=== PATIENT | male | born 1955 | race Caucasian/White ===

== ENCOUNTER 2023-08-09 09:53 | Inpatient (IN) ==
[2023-08-09] MEDS: VANCOMYCIN 1,500 MG in 0.9 % SODIUM CHLORIDE 500 ML IV ONE (10:35)
[2023-08-09] MEDS: fentaNYL 100 MCG/2 ML VIAL IV ONE (10:36)
[2023-08-09 10:44] LABS: Basophils # (Auto) 0.02 K/mcL (0.00-0.30); Basophils % (Auto) 0.3 % (0.0-2.0); Eosinophils # (Auto) 0.34 K/mcL (0.00-0.70); Eosinophils % (Auto) 4.7 % (0.0-7.0); Hematocrit 24.7 % (40.1-51.0); Hemoglobin 7.4 g/dL (13.7-17.5); Lymphocytes # (Auto) 0.63 K/mcL (1.50-4.80); Lymphocytes % (Auto) 8.8 % (15.5-49.0); Mean Cell Volume 73.5 fL (80.0-100.0); Mean Platelet Volume 8.8 fL (8.8-12.5); Monocytes # (Auto) 0.48 K/mcL (0.10-0.90); Monocytes % (Auto) 6.7 % (1.0-12.0); Neutrophils % (Auto) 79.4 % (38.0-78.0); Platelet Count 168 K/mcL (140-440); RBC 3.36 M/mcL (4.63-6.08); Red Cell Distribution Width 17.6 % (11.5-14.5); WBC 7.2 K/mcL (4.5-11.0)
[2023-08-09 11:04] LABS: ALT/SGPT 13 U/L (<40); AST/SGOT 36 U/L (<40); Albumin 2.8 gm/dL (3.2-5.2); Albumin/Globulin Ratio 0.7 (1.0-2.3); Alkaline Phosphatase 208 U/L (39-117); Bilirubin,Total 0.4 mg/dL (0.1-1.0); Blood Urea Nitrogen 40 mg/dL (8-23); Calcium 8.3 mg/dL (8.6-10.4); Carbon Dioxide 21 mmol/L (22-30); Chloride 101 mmol/L (96-108); Glomerular Filtration Rate 33; Glucose 229 mg/dL (70-105)
[2023-08-09 11:39] LABS: Alcohol, Blood < 10.1 mg/dL; Alcohol,Blood < 0.010 gm/dL (<0.010)
[2023-08-09] MEDS: 0.9 % SODIUM CHLORIDE 1,000 ML IV SCH ×2 (12:36→16:00)
[2023-08-09] MEDS ORDERED: DEXTROSE 31 GM ORAL.SUSP PO PRN (13:15)
[2023-08-09] MEDS ORDERED: ONDANSETRON 4 MG/2 ML VIAL IV PRN (13:15)
[2023-08-09] MEDS ORDERED: VANCOMYCIN PER PHARMACY IV SCH (13:15)
[2023-08-09] MEDS ORDERED: IPRATROPIUM/ALBUTEROL 3 ML AMPUL.NEB NEB PRN (13:15)
[2023-08-09] MEDS ORDERED: DEXTROSE 50% 50 ML VIAL IV PRN (13:15)
[2023-08-09] MEDS: ACETAMINOPHEN 325 MG TABLET PO PRN (13:30)
[2023-08-09] MEDS: PIPERACILLIN SODIUM/TAZOBACTAM 3.375 GM in DEXTROSE 5% IN WATER 50 ML IV SCH (13:48)
[2023-08-09] MEDS: oxyCODONE IR 5 MG TABLET PO PRN (13:56)
[2023-08-09] MEDS: 0.9 % SODIUM CHLORIDE 10 ML SYRINGE IV SCH (14:00)
[2023-08-09] MEDS ORDERED: IOPAMIDOL 100 ML BOTTLE IV ONE (15:11)
[2023-08-09] MEDS: PIPERACILLIN SODIUM/TAZOBACTAM 3.375 GM in DEXTROSE 5% IN WATER 50 ML IV ONE (15:18)
[2023-08-09] MEDS: HYDROmorphone 0.5 MG/0.5 ML SYRINGE IV PRN (15:25)
[2023-08-09 17:04] LABS: Amphetamine Screen,Urine Suspect positive; Barbiturate Screen,Urine None detected; Benzodiazepines Screen,Urine None detected; Cannabinoid Screen,Urine None detected; Cocaine Screen,Urine None detected; Opiate Screen,Urine None detected; Oxycodone, Urine Screen None detected; Phencyclidine Screen,Urine None detected
[2023-08-09] MEDS: INSULIN LISPRO 1 UNIT/0.01 ML UNIT SQ SCH (17:04)
[2023-08-09] MEDS: PIPERACILLIN SODIUM/TAZOBACTAM 3.375 GM in DEXTROSE 5% IN WATER 100 ML IV SCH (19:40)
[2023-08-09] MEDS: SENNOSIDES 1 TABLET PO SCH (21:41)
[2023-08-09] MEDS: DOCUSATE SODIUM 100 MG CAPSULE PO SCH (21:42)
[2023-08-09] MEDS: buPROPion 150 MG TAB.SR.12H PO SCH (21:42)
[2023-08-09] MEDS: APIXABAN 2.5 MG TABLET PO SCH (21:42)
[2023-08-10 07:06] LABS: Basophils # (Auto) 0.02 K/mcL (0.00-0.30); Basophils % (Auto) 0.3 % (0.0-2.0); Eosinophils # (Auto) 0.43 K/mcL (0.00-0.70); Eosinophils % (Auto) 6.7 % (0.0-7.0); Hematocrit 24.6 % (40.1-51.0); Hemoglobin 7.2 g/dL (13.7-17.5); Lymphocytes # (Auto) 0.58 K/mcL (1.50-4.80); Mean Cell Volume 76.6 fL (80.0-100.0); Mean Corpuscular HGB Conc 29.3 g/dL (31.0-36.0); Mean Platelet Volume 9.3 fL (8.8-12.5); Monocytes # (Auto) 0.32 K/mcL (0.10-0.90); Neutrophils % (Auto) 78.7 % (38.0-78.0); Platelet Count 197 K/mcL (140-440); RBC 3.21 M/mcL (4.63-6.08); Red Cell Distribution Width 17.6 % (11.5-14.5); WBC 6.5 K/mcL (4.5-11.0)
[2023-08-10 07:34] LABS: ALT/SGPT 11 U/L (<40); AST/SGOT 34 U/L (<40); Albumin 2.8 gm/dL (3.2-5.2); Albumin/Globulin Ratio 0.7 (1.0-2.3); Alkaline Phosphatase 217 U/L (39-117); Bilirubin,Total 0.4 mg/dL (0.1-1.0); Blood Urea Nitrogen 33 mg/dL (8-23); Calcium 8.4 mg/dL (8.6-10.4); Carbon Dioxide 22 mmol/L (22-30); Chloride 105 mmol/L (96-108); Globulin 4.3 gm/dL (2.2-3.7); Glomerular Filtration Rate 44; Glucose 122 mg/dL (70-105)
[2023-08-10] MEDS: ATORVASTATIN 10 MG TABLET PO SCH (08:10)
[2023-08-10] MEDS: amLODIPine 5 MG TABLET PO SCH (08:11)
[2023-08-10] MEDS: INSULIN GLARGINE, HUMAN 1 UNIT/0.01 ML SQ SCH (08:16)
[2023-08-10] MEDS: VANCOMYCIN 1,250 MG in 0.9 % SODIUM CHLORIDE 500 ML IV SCH (09:34)
[2023-08-10 10:07] LABS: Estimated Average Glucose(eAG) 177 mg/dL; Hemoglobin A1C 7.8 % Hgb (4.0-6.0)
[2023-08-10] MEDS ORDERED: OZEMPIC 2 MG SUB-Q SCH (10:15)
[2023-08-10] MEDS: Empagliflozin [Jardiance] 25 mg tablet PO SCH (10:40)
[2023-08-10] MEDS: INJECTOR SUB-Q SCH (10:42)
[2023-08-10] MEDS: SEMAGLUTIDE SUB-Q SCH (10:42)
[2023-08-10] MEDS: traZODone HCL 50 MG TABLET PO PRN (21:01)
[2023-08-11 06:52] LABS: Basophils # (Auto) 0.02 K/mcL (0.00-0.30); Basophils % (Auto) 0.4 % (0.0-2.0); Eosinophils # (Auto) 0.33 K/mcL (0.00-0.70); Eosinophils % (Auto) 6.4 % (0.0-7.0); Hematocrit 24.7 % (40.1-51.0); Hemoglobin 7.3 g/dL (13.7-17.5); Lymphocytes # (Auto) 0.57 K/mcL (1.50-4.80); Mean Cell Volume 75.1 fL (80.0-100.0); Mean Corpuscular HGB Conc 29.6 g/dL (31.0-36.0); Mean Platelet Volume 9.1 fL (8.8-12.5); Monocytes # (Auto) 0.32 K/mcL (0.10-0.90); Monocytes % (Auto) 6.2 % (1.0-12.0); Neutrophils % (Auto) 75.8 % (38.0-78.0); Platelet Count 214 K/mcL (140-440); RBC 3.29 M/mcL (4.63-6.08); Red Cell Distribution Width 17.5 % (11.5-14.5); WBC 5.2 K/mcL (4.5-11.0)
[2023-08-11 07:27] LABS: ALT/SGPT 13 U/L (<40); AST/SGOT 27 U/L (<40); Albumin 2.8 gm/dL (3.2-5.2); Albumin/Globulin Ratio 0.7 (1.0-2.3); Alkaline Phosphatase 216 U/L (39-117); Bilirubin,Total 0.4 mg/dL (0.1-1.0); Blood Urea Nitrogen 28 mg/dL (8-23); Calcium 8.9 mg/dL (8.6-10.4); Carbon Dioxide 20 mmol/L (22-30); Chloride 106 mmol/L (96-108); Glomerular Filtration Rate 51; Glucose 77 mg/dL (70-105)
[2023-08-12 07:34] LABS: Basophils # (Auto) 0.02 K/mcL (0.00-0.30); Basophils % (Auto) 0.5 % (0.0-2.0); Eosinophils # (Auto) 0.37 K/mcL (0.00-0.70); Eosinophils % (Auto) 8.8 % (0.0-7.0); Hematocrit 23.8 % (40.1-51.0); Lymphocytes % (Auto) 14.3 % (15.5-49.0); Mean Cell Volume 75.8 fL (80.0-100.0); Mean Corpuscular HGB Conc 29.4 g/dL (31.0-36.0); Mean Platelet Volume 9.1 fL (8.8-12.5); Monocytes # (Auto) 0.37 K/mcL (0.10-0.90); Monocytes % (Auto) 8.8 % (1.0-12.0); Neutrophils % (Auto) 67.4 % (38.0-78.0); Platelet Count 248 K/mcL (140-440); RBC 3.14 M/mcL (4.63-6.08); Red Cell Distribution Width 17.6 % (11.5-14.5); WBC 4.2 K/mcL (4.5-11.0)
[2023-08-12 08:06] LABS: ALT/SGPT 12 U/L (<40); AST/SGOT 27 U/L (<40); Albumin 2.9 gm/dL (3.2-5.2); Albumin/Globulin Ratio 0.7 (1.0-2.3); Alkaline Phosphatase 210 U/L (39-117); Bilirubin,Total 0.3 mg/dL (0.1-1.0); Blood Urea Nitrogen 25 mg/dL (8-23); Calcium 8.5 mg/dL (8.6-10.4); Carbon Dioxide 20 mmol/L (22-30); Chloride 108 mmol/L (96-108); Globulin 3.9 gm/dL (2.2-3.7); Glomerular Filtration Rate 56; Glucose 59 mg/dL (70-105)
[2023-08-12 08:16] LABS: Hematocrit 25.4 % (40.1-51.0); Hemoglobin 7.3 g/dL (13.7-17.5)
[2023-08-12] MEDS: metroNIDAZOLE 500 MG TABLET PO SCH (15:11)
[2023-08-12] MEDS ORDERED: 0.9 % SODIUM CHLORIDE 10 ML SYRINGE IV PRN (15:21)
[2023-08-12] MEDS: DAPTOmycin 500 MG VIAL IV SCH (16:31)
[2023-08-12] MEDS: 0.9 % SODIUM CHLORIDE 10 ML SYRINGE IV SCH (21:21)
[2023-08-13 07:09] LABS: Basophils # (Auto) 0.03 K/mcL (0.00-0.30); Basophils % (Auto) 0.6 % (0.0-2.0); Eosinophils # (Auto) 0.32 K/mcL (0.00-0.70); Eosinophils % (Auto) 6.5 % (0.0-7.0); Hematocrit 23.7 % (40.1-51.0); Lymphocytes # (Auto) 0.64 K/mcL (1.50-4.80); Lymphocytes % (Auto) 13.1 % (15.5-49.0); Mean Corpuscular HGB Conc 29.5 g/dL (31.0-36.0); Mean Platelet Volume 8.2 fL (8.8-12.5); Monocytes # (Auto) 0.35 K/mcL (0.10-0.90); Monocytes % (Auto) 7.2 % (1.0-12.0); Neutrophils % (Auto) 72.2 % (38.0-78.0); Platelet Count 236 K/mcL (140-440); RBC 3.16 M/mcL (4.63-6.08); Red Cell Distribution Width 17.5 % (11.5-14.5); WBC 4.9 K/mcL (4.5-11.0)
[2023-08-13 07:32] LABS: ALT/SGPT 15 U/L (<40); AST/SGOT 27 U/L (<40); Albumin 2.6 gm/dL (3.2-5.2); Albumin/Globulin Ratio 0.7 (1.0-2.3); Alkaline Phosphatase 199 U/L (39-117); Bilirubin,Total 0.3 mg/dL (0.1-1.0); Blood Urea Nitrogen 25 mg/dL (8-23); Calcium 8.6 mg/dL (8.6-10.4); Carbon Dioxide 21 mmol/L (22-30); Chloride 108 mmol/L (96-108); Globulin 3.9 gm/dL (2.2-3.7); Glomerular Filtration Rate 56; Glucose 79 mg/dL (70-105)
[2023-08-13] MEDS: INSULIN GLARGINE, HUMAN 1 UNIT/0.01 ML SQ SCH (11:19)
[2023-08-13 12:02] LABS: Hematocrit 24.6 % (40.1-51.0); Hemoglobin 7.3 g/dL (13.7-17.5)
[2023-08-13] MEDS ORDERED: APIXABAN 5 MG TABLET PO SCH (21:00)
[2023-08-14] MEDS ORDERED: INSULIN GLARGINE, HUMAN 1 UNIT/0.01 ML SQ SCH (09:00)
[2023-08-16] MEDS ORDERED: SEMAGLUTIDE SUB-Q SCH (09:00)
[2023-08-16] MEDS ORDERED: [UNRECOGNIZED DRUG - OTHER] SUB-Q SCH (09:00)
[2023-08-18 06:03] LABS: Amphetamine Screen Positive
== END 2023-08-13 16:45 | disposition home or self-care (01) | DRG 638 ==
LOC: ED 09:53 → MEDSUR 13:05
PROVIDERS: ADMIT Internal Medicine; ATTEND Student in an Organized Health Care Education/Training Program

== ENCOUNTER 2024-07-03 12:50 | Inpatient (IN) ==
[2024-07-03] MEDS ORDERED: IOPAMIDOL 100 ML BOTTLE IV ONE (12:51)
[2024-07-03 13:45] LABS: Basophils # (Auto) 0.03 K/mcL (0.00-0.30); Basophils % (Auto) 0.4 % (0.0-2.0); Eosinophils # (Auto) 0.13 K/mcL (0.00-0.70); Eosinophils % (Auto) 1.9 % (0.0-7.0); Hematocrit 17.6 % (40.1-51.0); Hemoglobin 4.7 g/dL (13.7-17.5); Lymphocytes # (Auto) 1.08 K/mcL (1.50-4.80); Lymphocytes % (Auto) 15.8 % (15.5-49.0); Mean Cell Volume 67.4 fL (80.0-100.0); Mean Corpuscular HGB Conc 26.7 g/dL (31.0-36.0); Mean Platelet Volume 8.8 fL (8.8-12.5); Monocytes # (Auto) 0.61 K/mcL (0.10-0.90); Monocytes % (Auto) 8.9 % (1.0-12.0); Neutrophils % (Auto) 72.9 % (38.0-78.0); Platelet Count 194 K/mcL (140-440); RBC 2.61 M/mcL (4.63-6.08); Red Cell Distribution Width 19.8 % (11.5-14.5); WBC 6.8 K/mcL (4.5-11.0)
[2024-07-03] MEDS: FUROSEMIDE 40 MG/4 ML VIAL IV ONE (13:51)
[2024-07-03 13:52] LABS: ALT/SGPT 15 U/L (<40); AST/SGOT 20 U/L (<40); Albumin 2.9 gm/dL (3.2-5.2); Albumin/Globulin Ratio 0.7 (1.0-2.3); Alkaline Phosphatase 143 U/L (39-117); Bilirubin,Total 0.4 mg/dL (0.1-1.0); Blood Urea Nitrogen 39 mg/dL (8-23); Calcium 8.5 mg/dL (8.6-10.4); Carbon Dioxide 19 mmol/L (22-30); Chloride 108 mmol/L (96-108); Globulin 4.1 gm/dL (2.2-3.7); Glomerular Filtration Rate 40; Glucose 236 mg/dL (70-105); Potassium 4.4 mmol/L (3.3-5.1); Sodium 138 mmol/L (133-145)
[2024-07-03] MEDS: IPRATROPIUM/ALBUTEROL 3 ML AMPUL.NEB NEB ONE ×2 (13:57→21:40)
[2024-07-03] MEDS: 0.9 % SODIUM CHLORIDE 250 ML IV SCH ×2 (14:14→22:06)
[2024-07-03 15:23] LABS: Prothrombin Time 23.7 sec (11.9-14.5)
[2024-07-03 16:53] LABS: Appearance,Urine CLEAR (Clear); Bilirubin,Urine Negative (Negative); Color,Urine YELLOW; Glucose,Urine (UA) >=500 mg/dL (Negative); Ketones,Urine Negative (Negative); Leukocyte Esterase,Urine Negative /uL (Negative); Nitrate,Urine Negative (Negative); Protein,Urine Negative (Negative); Specific Gravity,Urine 1.016 (1.000-1.035); Urine Blood Negative (Negative); Urine RBC 1 /hpf (0-3); Urine Squamous Epithelial Cell 0 /hpf (0-4); Urine WBC 1 /hpf (0-4); Urobilinogen,Urine Negative
[2024-07-03 17:29] LABS: Amphetamine Screen,Urine Suspect positive; Barbiturate Screen,Urine None detected; Benzodiazepines Screen,Urine Suspect positive; Cannabinoid Screen,Urine None detected; Cocaine Screen,Urine None detected; Fentanyl, Urine Screen None Detected; Opiate Screen,Urine None detected; Oxycodone, Urine Screen None detected; Phencyclidine Screen,Urine None detected
[2024-07-03 17:38] LABS: Ferritin 21.7 ng/mL (30.0-400.0)
[2024-07-03] MEDS: cefTRIAXone 1 GM VIAL IV ONE (19:18)
[2024-07-03] MEDS: AZITHROMYCIN 500 MG in 0.9 % SODIUM CHLORIDE 250 ML IV ONE (19:22)
[2024-07-03] MEDS ORDERED: ONDANSETRON 4 MG/2 ML VIAL IV PRN ×2 (20:55→22:07)
[2024-07-03] MEDS: HYDROmorphone 0.5 MG/0.5 ML SYRINGE IV ONE (21:11)
[2024-07-03 21:37] LABS: Retic Absolute 0.05 M/mcL (0.03-0.11)
[2024-07-03 21:59] LABS: Haptoglobin 204 mg/dL (30-200)
[2024-07-03] MEDS ORDERED: DEXTROSE 31 GM ORAL.SUSP PO PRN (22:07)
[2024-07-03] MEDS ORDERED: traZODone HCL 50 MG TABLET PO PRN (22:07)
[2024-07-03] MEDS ORDERED: DEXTROSE 50% 50 ML VIAL IV PRN (22:07)
[2024-07-03] MEDS ORDERED: oxyCODONE IR 5 MG TABLET PO PRN (22:07)
[2024-07-03] MEDS: cefTRIAXone 1 GM VIAL ONE (22:21)
[2024-07-03] MEDS: INSULIN LISPRO 1 UNIT/0.01 ML UNIT SQ SCH (22:21)
[2024-07-03] MEDS: cefTRIAXone 1 GM VIAL IV SCH (22:25)
[2024-07-03] MEDS: AZITHROMYCIN 500 MG in DEXTROSE 5% IN WATER 250 ML IV SCH (22:25)
[2024-07-03] MEDS: 0.9 % SODIUM CHLORIDE 10 ML SYRINGE IV SCH ×2 (22:27→22:29)
[2024-07-03] MEDS: DOCUSATE SODIUM 100 MG CAPSULE PO SCH ×2 (22:29)
[2024-07-03] MEDS: SENNOSIDES 1 TABLET PO SCH ×2 (22:29)
[2024-07-04 00:46] LABS: Carcinoembryonic Antigen 6.7 ng/mL (<3.4)
[2024-07-04] MEDS: NICOTINE 21 MG PATCH TOPICAL SCH (01:53)
[2024-07-04] MEDS: NICOTINE 21 MG PATCH ONE (01:53)
[2024-07-04 06:46] LABS: ALT/SGPT 15 U/L (<40); AST/SGOT 23 U/L (<40); Albumin 2.8 gm/dL (3.2-5.2); Albumin/Globulin Ratio 0.7 (1.0-2.3); Alkaline Phosphatase 184 U/L (39-117); Bilirubin,Total 0.5 mg/dL (0.1-1.0); Blood Urea Nitrogen 37 mg/dL (8-23); Calcium 8.3 mg/dL (8.6-10.4); Carbon Dioxide 21 mmol/L (22-30); Chloride 111 mmol/L (96-108); Globulin 4.1 gm/dL (2.2-3.7); Glomerular Filtration Rate 38; Glucose 80 mg/dL (70-105); Potassium 4.2 mmol/L (3.3-5.1); Sodium 141 mmol/L (133-145)
[2024-07-04 06:58] LABS: Basophils # (Auto) 0.04 K/mcL (0.00-0.30); Basophils % (Auto) 0.5 % (0.0-2.0); Eosinophils # (Auto) 0.26 K/mcL (0.00-0.70); Eosinophils % (Auto) 3.1 % (0.0-7.0); Hematocrit 22.3 % (40.1-51.0); Hemoglobin 6.5 g/dL (13.7-17.5); Lymphocytes # (Auto) 0.82 K/mcL (1.50-4.80); Lymphocytes % (Auto) 9.7 % (15.5-49.0); Mean Cell Volume 72.2 fL (80.0-100.0); Mean Corpuscular HGB Conc 29.1 g/dL (31.0-36.0); Mean Platelet Volume 8.8 fL (8.8-12.5); Monocytes # (Auto) 0.71 K/mcL (0.10-0.90); Monocytes % (Auto) 8.4 % (1.0-12.0); Neutrophils % (Auto) 78.1 % (38.0-78.0); Platelet Count 217 K/mcL (140-440); RBC 3.09 M/mcL (4.63-6.08); Red Cell Distribution Width 21.8 % (11.5-14.5); WBC 8.5 K/mcL (4.5-11.0)
[2024-07-04] MEDS: PANTOPRAZOLE 40 MG PACKET PO SCH (08:00)
[2024-07-04] MEDS: FUROSEMIDE 40 MG/4 ML VIAL IV SCH (08:01)
[2024-07-04] MEDS: SIMVASTATIN 20 MG TABLET PO SCH (09:37)
[2024-07-04] MEDS: glipiZIDE 5 MG TABLET PO SCH (09:37)
[2024-07-04] MEDS: buPROPion 150 MG TAB.SR.12H PO SCH (09:37)
[2024-07-04] MEDS: INSULIN GLARGINE, HUMAN 1 UNIT/0.01 ML SQ SCH (09:38)
[2024-07-04] MEDS: cefTRIAXone 1 GM VIAL IV SCH (09:38)
[2024-07-04] MEDS: LISINOPRIL 5 MG TABLET PO SCH (09:38)
[2024-07-04] MEDS: Empagliflozin [Jardiance] 25 mg tablet PO SCH (09:38)
[2024-07-04] MEDS: AZITHROMYCIN 500 MG in DEXTROSE 5% IN WATER 250 ML IV SCH (09:39)
[2024-07-04] MEDS: 0.9 % SODIUM CHLORIDE 250 ML IV SCH (11:25)
[2024-07-04 12:26] LABS: Estimated Average Glucose(eAG) 140 mg/dL; Hemoglobin A1C 6.5 % Hgb (4.0-6.0)
[2024-07-04] MEDS: IPRATROPIUM/ALBUTEROL 3 ML AMPUL.NEB NEB PRN (16:10)
[2024-07-04] MEDS: ACETAMINOPHEN 325 MG TABLET PO PRN (16:22)
[2024-07-04] MEDS: HYDROcodone/APAP 10/325MG TABLET PO PRN (21:58)
[2024-07-04] MEDS: METOPROLOL TARTRATE 25 MG TABLET PO SCH (21:59)
[2024-07-05 06:49] LABS: ALT/SGPT 19 U/L (<40); AST/SGOT 31 U/L (<40); Albumin 3.1 gm/dL (3.2-5.2); Albumin/Globulin Ratio 0.7 (1.0-2.3); Alkaline Phosphatase 208 U/L (39-117); Bilirubin,Total 0.5 mg/dL (0.1-1.0); Blood Urea Nitrogen 36 mg/dL (8-23); Calcium 8.5 mg/dL (8.6-10.4); Carbon Dioxide 22 mmol/L (22-30); Chloride 108 mmol/L (96-108); Globulin 4.5 gm/dL (2.2-3.7); Glomerular Filtration Rate 40; Glucose 86 mg/dL (70-105); Sodium 142 mmol/L (133-145)
[2024-07-05 06:50] LABS: Basophils # (Auto) 0.03 K/mcL (0.00-0.30); Basophils % (Auto) 0.3 % (0.0-2.0); Eosinophils # (Auto) 0.43 K/mcL (0.00-0.70); Eosinophils % (Auto) 4.7 % (0.0-7.0); Hematocrit 30.4 % (40.1-51.0); Hemoglobin 9.1 g/dL (13.7-17.5); Lymphocytes # (Auto) 1.06 K/mcL (1.50-4.80); Lymphocytes % (Auto) 11.6 % (15.5-49.0); Mean Cell Volume 72.4 fL (80.0-100.0); Mean Corpuscular HGB Conc 29.9 g/dL (31.0-36.0); Mean Platelet Volume 8.9 fL (8.8-12.5); Monocytes # (Auto) 0.42 K/mcL (0.10-0.90); Monocytes % (Auto) 4.6 % (1.0-12.0); Neutrophils % (Auto) 78.6 % (38.0-78.0); Platelet Count 250 K/mcL (140-440); Red Cell Distribution Width 21.8 % (11.5-14.5); WBC 9.1 K/mcL (4.5-11.0)
[2024-07-05] MEDS: AZITHROMYCIN 250 MG TABLET PO SCH (08:48)
[2024-07-05] MEDS ORDERED: INSULIN GLARGINE, HUMAN 1 UNIT/0.01 ML SQ SCH (09:00)
[2024-07-05] MEDS: guaiFENesin/DEXTROMETHORPHAN 5ML UD CUP PO PRN (14:26)
[2024-07-06 06:39] LABS: Basophils # (Auto) 0.04 K/mcL (0.00-0.30); Basophils % (Auto) 0.6 % (0.0-2.0); Eosinophils # (Auto) 0.41 K/mcL (0.00-0.70); Hematocrit 30.3 % (40.1-51.0); Hemoglobin 8.9 g/dL (13.7-17.5); Lymphocytes # (Auto) 0.98 K/mcL (1.50-4.80); Lymphocytes % (Auto) 14.4 % (15.5-49.0); Mean Cell Volume 72.3 fL (80.0-100.0); Mean Corpuscular HGB Conc 29.4 g/dL (31.0-36.0); Mean Platelet Volume 8.9 fL (8.8-12.5); Monocytes # (Auto) 0.46 K/mcL (0.10-0.90); Monocytes % (Auto) 6.7 % (1.0-12.0); Neutrophils % (Auto) 72.2 % (38.0-78.0); Platelet Count 222 K/mcL (140-440); RBC 4.19 M/mcL (4.63-6.08); Red Cell Distribution Width 22.3 % (11.5-14.5); WBC 6.8 K/mcL (4.5-11.0)
[2024-07-06 06:53] LABS: ALT/SGPT 19 U/L (<40); AST/SGOT 25 U/L (<40); Albumin 2.9 gm/dL (3.2-5.2); Albumin/Globulin Ratio 0.7 (1.0-2.3); Alkaline Phosphatase 152 U/L (39-117); Bilirubin,Total 0.5 mg/dL (0.1-1.0); Blood Urea Nitrogen 34 mg/dL (8-23); Calcium 8.4 mg/dL (8.6-10.4); Carbon Dioxide 22 mmol/L (22-30); Chloride 107 mmol/L (96-108); Globulin 4.2 gm/dL (2.2-3.7); Glomerular Filtration Rate 38; Glucose 112 mg/dL (70-105); Potassium 3.9 mmol/L (3.3-5.1); Sodium 141 mmol/L (133-145)
[2024-07-06] MEDS: SPIRONOLACTONE 25 MG TABLET PO SCH (08:13)
[2024-07-08 16:09] LABS: Amphetamine Screen Negative ({null, Cutoff=500})
[2024-07-09 17:09] LABS: Alprazolam, Urine Negative ({null, Cutoff=100}); Clonazepam, Urine Negative ({null, Cutoff=100}); Flurazepam, Urine Negative ({null, Cutoff=100}); Lorazepam, Urine Negative ({null, Cutoff=100}); Midazolam, Urine Negative ({null, Cutoff=100}); Nordiazepam, Urine Negative ({null, Cutoff=100}); Oxazepam, Urine Negative ({null, Cutoff=100}); Temazepam, Urine Negative ({null, Cutoff=100}); Triazolam, Urine Negative ({null, Cutoff=100})
== END 2024-07-06 13:09 | disposition home health service (06) | DRG 811 ==
LOC: ED 12:50 → MEDSUR 22:07
PROVIDERS: ADMIT Internal Medicine; ATTEND Internal Medicine

== ENCOUNTER 2024-07-16 09:22 | Inpatient (IN) ==
[2024-07-16] MEDS: FUROSEMIDE 40 MG/4 ML VIAL IV ONE (11:37)
[2024-07-16 12:22] LABS: Basophils # (Auto) 0.03 K/mcL (0.00-0.30); Basophils % (Auto) 0.3 % (0.0-2.0); Eosinophils # (Auto) 0.01 K/mcL (0.00-0.70); Eosinophils % (Auto) 0.1 % (0.0-7.0); Hematocrit 29.2 % (40.1-51.0); Hemoglobin 8.6 g/dL (13.7-17.5); Lymphocytes # (Auto) 0.79 K/mcL (1.50-4.80); Lymphocytes % (Auto) 6.6 % (15.5-49.0); Mean Cell Volume 71.2 fL (80.0-100.0); Mean Corpuscular HGB Conc 29.5 g/dL (31.0-36.0); Mean Platelet Volume 9.2 fL (8.8-12.5); Monocytes # (Auto) 0.73 K/mcL (0.10-0.90); Monocytes % (Auto) 6.1 % (1.0-12.0); Neutrophils % (Auto) 86.6 % (38.0-78.0); Platelet Count 162 K/mcL (140-440); Red Cell Distribution Width 23.8 % (11.5-14.5)
[2024-07-16 12:24] LABS: ALT/SGPT 14 U/L (<40); AST/SGOT 24 U/L (<40); Albumin 2.9 gm/dL (3.2-5.2); Albumin/Globulin Ratio 0.7 (1.0-2.3); Alkaline Phosphatase 116 U/L (39-117); Bilirubin,Total 0.9 mg/dL (0.1-1.0); Blood Urea Nitrogen 44 mg/dL (8-23); Calcium 9.4 mg/dL (8.6-10.4); Carbon Dioxide 25 mmol/L (22-30); Chloride 101 mmol/L (96-108); Globulin 4.1 gm/dL (2.2-3.7); Glomerular Filtration Rate 40; Glucose 139 mg/dL (70-105); Potassium 4.7 mmol/L (3.3-5.1); Sodium 134 mmol/L (133-145)
[2024-07-16 13:41] LABS: Appearance,Urine CLEAR (Clear); Bilirubin,Urine Negative (Negative); Color,Urine YELLOW; Glucose,Urine (UA) >=500 mg/dL (Negative); Ketones,Urine Negative (Negative); Leukocyte Esterase,Urine 75 /uL (Negative); Nitrate,Urine Negative (Negative); Protein,Urine 30 mg/dL (Negative); Specific Gravity,Urine 1.021 (1.000-1.035); Urine Blood Negative (Negative); Urine Hyaline Cast 6 /lph (0-2); Urine RBC 0 /hpf (0-3); Urine Squamous Epithelial Cell 0 /hpf (0-4); Urine WBC 5 /hpf (0-4); Urobilinogen,Urine Negative
[2024-07-16 13:42] LABS: Amphetamine Screen,Urine Suspect positive; Barbiturate Screen,Urine None detected; Benzodiazepines Screen,Urine None detected; Cannabinoid Screen,Urine None detected; Cocaine Screen,Urine None detected; Fentanyl, Urine Screen None Detected; Opiate Screen,Urine None detected; Oxycodone, Urine Screen None detected; Phencyclidine Screen,Urine None detected
[2024-07-16] MEDS: cefTRIAXone 2 GM in DEXTROSE 5% IN WATER 50 ML IV ONE (14:14)
[2024-07-16] MEDS: ACETAMINOPHEN 1,000 MG/100 ML BAG IV ONE (15:14)
[2024-07-16] MEDS ORDERED: POLYETHYLENE GLYCOL 3350 17 GM PACKET PO PRN (16:25)
[2024-07-16] MEDS ORDERED: DEXTROSE 50% 50 ML VIAL IV PRN (16:25)
[2024-07-16] MEDS ORDERED: ONDANSETRON 4 MG/2 ML VIAL IV PRN (16:25)
[2024-07-16] MEDS ORDERED: POTASSIUM CHLORIDE 40 MEQ in DEXTROSE 5% IN WATER 500 ML IV PRN (16:25)
[2024-07-16] MEDS ORDERED: SENNOSIDES 1 TABLET PO PRN (16:25)
[2024-07-16] MEDS ORDERED: DEXTROSE 31 GM ORAL.SUSP PO PRN (16:25)
[2024-07-16] MEDS ORDERED: METOPROLOL TARTRATE 5 MG/5 ML VIAL IV PRN (16:25)
[2024-07-16] MEDS ORDERED: MAGNESIUM SULFATE 2 GM/50 ML BAG IV PRN (16:25)
[2024-07-16] MEDS ORDERED: IPRATROPIUM/ALBUTEROL 3 ML AMPUL.NEB NEB PRN (16:25)
[2024-07-16] MEDS ORDERED: POTASSIUM CHLORIDE 20 MEQ TABLET PO PRN ×2 (16:25)
[2024-07-16] MEDS ORDERED: METOCLOPRAMIDE 10 MG/2 ML VIAL IV PRN (16:25)
[2024-07-16] MEDS: FUROSEMIDE 40 MG/4 ML VIAL IV SCH (17:19)
[2024-07-16] MEDS: ALBUMIN HUMAN 12.5 GM/50 ML VIAL IV SCH (17:19)
[2024-07-16] MEDS: LIDOCAINE 2% URO-JET 10 ML JEL.PF.APP UR SCH (17:19)
[2024-07-16] MEDS: INSULIN LISPRO 1 UNIT/0.01 ML UNIT SQ SCH (17:19)
[2024-07-16] MEDS: VANCOMYCIN 1,500 MG in 0.9 % SODIUM CHLORIDE 500 ML IV SCH (19:58)
[2024-07-16] MEDS: NICOTINE 14 MG PATCH TOPICAL SCH (19:58)
[2024-07-16] MEDS: VANCOMYCIN PER PHARMACY IV ONE (20:02)
[2024-07-16] MEDS: DOCUSATE SODIUM 100 MG CAPSULE PO SCH (21:25)
[2024-07-17] MEDS: ACETAMINOPHEN 325 MG TABLET PO PRN (01:19)
[2024-07-17 05:59] LABS: ALT/SGPT 13 U/L (<40); AST/SGOT 25 U/L (<40); Albumin 2.5 gm/dL (3.2-5.2); Albumin/Globulin Ratio 0.7 (1.0-2.3); Alkaline Phosphatase 102 U/L (39-117); Bilirubin,Direct 0.3 mg/dL (<0.3); Bilirubin,Total 0.5 mg/dL (0.1-1.0); Blood Urea Nitrogen 47 mg/dL (8-23); Calcium 8.7 mg/dL (8.6-10.4); Carbon Dioxide 26 mmol/L (22-30); Chloride 101 mmol/L (96-108); Globulin 3.5 gm/dL (2.2-3.7); Glomerular Filtration Rate 38; Glucose 198 mg/dL (70-105); Lactate Dehydrogenase 176 U/L (135-225); Phosphorous 2.9 mg/dL (2.5-4.5); Potassium 4.7 mmol/L (3.3-5.1); Sodium 135 mmol/L (133-145); Triglycerides 68 mg/dL (<150); Uric Acid 7.6 mg/dL (2.5-8.0)
[2024-07-17 06:25] LABS: Basophils # (Auto) 0.02 K/mcL (0.00-0.30); Basophils % (Auto) 0.3 % (0.0-2.0); Eosinophils # (Auto) 0.08 K/mcL (0.00-0.70); Eosinophils % (Auto) 1.3 % (0.0-7.0); Hematocrit 27.9 % (40.1-51.0); Hemoglobin 8.2 g/dL (13.7-17.5); Lymphocytes # (Auto) 0.45 K/mcL (1.50-4.80); Lymphocytes % (Auto) 7.1 % (15.5-49.0); Mean Cell Volume 71.9 fL (80.0-100.0); Mean Corpuscular HGB Conc 29.4 g/dL (31.0-36.0); Mean Platelet Volume 9.5 fL (8.8-12.5); Monocytes # (Auto) 0.42 K/mcL (0.10-0.90); Monocytes % (Auto) 6.6 % (1.0-12.0); Neutrophils % (Auto) 84.5 % (38.0-78.0); Platelet Count 138 K/mcL (140-440); RBC 3.88 M/mcL (4.63-6.08); Red Cell Distribution Width 24.2 % (11.5-14.5); WBC 6.4 K/mcL (4.5-11.0)
[2024-07-17] MEDS ORDERED: VANCOMYCIN PER PHARMACY IV SCH (09:15)
[2024-07-17] MEDS: SPIRONOLACTONE 25 MG TABLET PO SCH (09:54)
[2024-07-17] MEDS: SIMVASTATIN 20 MG TABLET PO SCH (09:54)
[2024-07-17] MEDS: ENOXAPARIN 60 MG/0.6 ML SYRINGE SQ SCH (09:54)
[2024-07-17] MEDS: METOPROLOL TARTRATE 25 MG TABLET PO SCH (09:54)
[2024-07-17] MEDS: cefTRIAXone 1 GM VIAL IV SCH (09:54)
[2024-07-17] MEDS: ALBUMIN HUMAN 12.5 GM/50 ML VIAL IV SCH (13:22)
[2024-07-17] MEDS: PANTOPRAZOLE 40 MG TABLET PO SCH (16:48)
[2024-07-17] MEDS: buPROPion 150 MG TAB.SR.12H PO SCH (20:51)
[2024-07-17] MEDS: MELATONIN 3 MG TABLET PO SCH (20:51)
[2024-07-17] MEDS: VANCOMYCIN 750 MG in 0.9 % SODIUM CHLORIDE 250 ML IV SCH (20:51)
[2024-07-18] MEDS: 0.9 % SODIUM CHLORIDE 10 ML SYRINGE IV SCH (05:07)
[2024-07-18 06:22] LABS: ALT/SGPT 13 U/L (<40); AST/SGOT 24 U/L (<40); Albumin 2.6 gm/dL (3.2-5.2); Albumin/Globulin Ratio 0.7 (1.0-2.3); Alkaline Phosphatase 109 U/L (39-117); Bilirubin,Direct 0.3 mg/dL (<0.3); Bilirubin,Total 0.5 mg/dL (0.1-1.0); Blood Urea Nitrogen 48 mg/dL (8-23); Calcium 8.6 mg/dL (8.6-10.4); Carbon Dioxide 27 mmol/L (22-30); Chloride 99 mmol/L (96-108); Globulin 3.8 gm/dL (2.2-3.7); Glomerular Filtration Rate 33; Glucose 245 mg/dL (70-105); Lactate Dehydrogenase 194 U/L (135-225); Phosphorous 3.1 mg/dL (2.5-4.5); Potassium 4.4 mmol/L (3.3-5.1); Sodium 136 mmol/L (133-145); Triglycerides 96 mg/dL (<150); Uric Acid 8.2 mg/dL (2.5-8.0)
[2024-07-18 06:38] LABS: Basophils # (Auto) 0.02 K/mcL (0.00-0.30); Basophils % (Auto) 0.4 % (0.0-2.0); Eosinophils # (Auto) 0.18 K/mcL (0.00-0.70); Eosinophils % (Auto) 3.7 % (0.0-7.0); Hematocrit 31.9 % (40.1-51.0); Hemoglobin 9.4 g/dL (13.7-17.5); Lymphocytes # (Auto) 0.69 K/mcL (1.50-4.80); Lymphocytes % (Auto) 14.2 % (15.5-49.0); Mean Cell Volume 72.3 fL (80.0-100.0); Mean Corpuscular HGB Conc 29.5 g/dL (31.0-36.0); Mean Platelet Volume 9.2 fL (8.8-12.5); Monocytes # (Auto) 0.42 K/mcL (0.10-0.90); Monocytes % (Auto) 8.6 % (1.0-12.0); Neutrophils % (Auto) 72.9 % (38.0-78.0); Platelet Count 164 K/mcL (140-440); RBC 4.41 M/mcL (4.63-6.08); Red Cell Distribution Width 24.4 % (11.5-14.5); WBC 4.9 K/mcL (4.5-11.0)
[2024-07-18] MEDS: ALBUMIN HUMAN 12.5 GM/50 ML VIAL IV SCH (07:43)
[2024-07-18] MEDS: APIXABAN 5 MG TABLET PO SCH (08:13)
[2024-07-18] MEDS: INSULIN GLARGINE, HUMAN 1 UNIT/0.01 ML SQ SCH (08:15)
[2024-07-18] MEDS ORDERED: LISINOPRIL 5 MG TABLET PO SCH (09:00)
[2024-07-18] MEDS: diphenhydrAMINE 25 MG CAPSULE PO PRN (23:55)
[2024-07-19 06:36] LABS: Basophils # (Auto) 0.05 K/mcL (0.00-0.30); Basophils % (Auto) 0.9 % (0.0-2.0); Eosinophils # (Auto) 0.24 K/mcL (0.00-0.70); Eosinophils % (Auto) 4.4 % (0.0-7.0); Hematocrit 31.7 % (40.1-51.0); Hemoglobin 9.3 g/dL (13.7-17.5); Lymphocytes # (Auto) 0.96 K/mcL (1.50-4.80); Lymphocytes % (Auto) 17.6 % (15.5-49.0); Mean Cell Volume 72.9 fL (80.0-100.0); Mean Corpuscular HGB Conc 29.3 g/dL (31.0-36.0); Mean Platelet Volume 9.4 fL (8.8-12.5); Monocytes # (Auto) 0.58 K/mcL (0.10-0.90); Monocytes % (Auto) 10.7 % (1.0-12.0); Neutrophils % (Auto) 66.2 % (38.0-78.0); Platelet Count 191 K/mcL (140-440); RBC 4.35 M/mcL (4.63-6.08); Red Cell Distribution Width 24.3 % (11.5-14.5); WBC 5.4 K/mcL (4.5-11.0)
[2024-07-19 06:42] LABS: ALT/SGPT 12 U/L (<40); AST/SGOT 22 U/L (<40); Albumin 2.6 gm/dL (3.2-5.2); Albumin/Globulin Ratio 0.7 (1.0-2.3); Alkaline Phosphatase 107 U/L (39-117); Bilirubin,Direct 0.2 mg/dL (<0.3); Bilirubin,Total 0.4 mg/dL (0.1-1.0); Blood Urea Nitrogen 50 mg/dL (8-23); C-Reactive Protein 8.45 mg/dL (0.03-0.80); Calcium 8.5 mg/dL (8.6-10.4); Carbon Dioxide 28 mmol/L (22-30); Chloride 101 mmol/L (96-108); Globulin 3.7 gm/dL (2.2-3.7); Glomerular Filtration Rate 40; Glucose 175 mg/dL (70-105); Lactate Dehydrogenase 211 U/L (135-225); Phosphorous 2.9 mg/dL (2.5-4.5); Potassium 4.1 mmol/L (3.3-5.1); Sodium 138 mmol/L (133-145); Triglycerides 73 mg/dL (<150); Uric Acid 8.1 mg/dL (2.5-8.0)
[2024-07-19] MEDS: VANCOMYCIN 1,250 MG in 0.9 % SODIUM CHLORIDE 500 ML IV SCH (11:51)
[2024-07-19] MEDS: ZOLPIDEM 5 MG TABLET PO PRN (23:31)
[2024-07-20] MEDS: ZOLPIDEM 5 MG TABLET ONE (01:26)
[2024-07-20 07:21] LABS: ALT/SGPT 14 U/L (<40); AST/SGOT 23 U/L (<40); Albumin 2.9 gm/dL (3.2-5.2); Albumin/Globulin Ratio 0.7 (1.0-2.3); Alkaline Phosphatase 124 U/L (39-117); Bilirubin,Direct 0.3 mg/dL (<0.3); Bilirubin,Total 0.5 mg/dL (0.1-1.0); Blood Urea Nitrogen 47 mg/dL (8-23); Calcium 8.7 mg/dL (8.6-10.4); Carbon Dioxide 26 mmol/L (22-30); Chloride 102 mmol/L (96-108); Globulin 4.2 gm/dL (2.2-3.7); Glomerular Filtration Rate 47; Glucose 179 mg/dL (70-105); Lactate Dehydrogenase 211 U/L (135-225); Phosphorous 2.8 mg/dL (2.5-4.5); Potassium 4.3 mmol/L (3.3-5.1); Sodium 139 mmol/L (133-145); Triglycerides 93 mg/dL (<150); Uric Acid 7.7 mg/dL (2.5-8.0)
[2024-07-20 07:54] LABS: Basophils # (Auto) 0.04 K/mcL (0.00-0.30); Basophils % (Auto) 0.6 % (0.0-2.0); Eosinophils # (Auto) 0.25 K/mcL (0.00-0.70); Eosinophils % (Auto) 3.8 % (0.0-7.0); Hematocrit 33.9 % (40.1-51.0); Hemoglobin 9.6 g/dL (13.7-17.5); Lymphocytes % (Auto) 16.6 % (15.5-49.0); Mean Cell Volume 73.5 fL (80.0-100.0); Mean Corpuscular HGB Conc 28.3 g/dL (31.0-36.0); Mean Platelet Volume 9.7 fL (8.8-12.5); Monocytes # (Auto) 0.63 K/mcL (0.10-0.90); Monocytes % (Auto) 9.5 % (1.0-12.0); Neutrophils % (Auto) 69.2 % (38.0-78.0); Platelet Count 235 K/mcL (140-440); RBC 4.61 M/mcL (4.63-6.08); Red Cell Distribution Width 24.8 % (11.5-14.5); WBC 6.6 K/mcL (4.5-11.0)
[2024-07-20] MEDS: diphenhydrAMINE 25 MG CAPSULE PO PRN (21:03)
[2024-07-21 07:49] LABS: Basophils # (Auto) 0.05 K/mcL (0.00-0.30); Basophils % (Auto) 0.8 % (0.0-2.0); Eosinophils # (Auto) 0.32 K/mcL (0.00-0.70); Eosinophils % (Auto) 5.2 % (0.0-7.0); Hematocrit 32.4 % (40.1-51.0); Hemoglobin 9.4 g/dL (13.7-17.5); Lymphocytes # (Auto) 1.27 K/mcL (1.50-4.80); Lymphocytes % (Auto) 20.6 % (15.5-49.0); Mean Platelet Volume 9.1 fL (8.8-12.5); Monocytes % (Auto) 8.1 % (1.0-12.0); Neutrophils % (Auto) 65.1 % (38.0-78.0); Platelet Count 214 K/mcL (140-440); RBC 4.44 M/mcL (4.63-6.08); Red Cell Distribution Width 24.2 % (11.5-14.5); WBC 6.2 K/mcL (4.5-11.0)
[2024-07-21 08:05] LABS: ALT/SGPT 14 U/L (<40); AST/SGOT 23 U/L (<40); Albumin/Globulin Ratio 0.8 (1.0-2.3); Alkaline Phosphatase 122 U/L (39-117); Bilirubin,Direct 0.3 mg/dL (<0.3); Bilirubin,Total 0.5 mg/dL (0.1-1.0); Blood Urea Nitrogen 43 mg/dL (8-23); Calcium 8.8 mg/dL (8.6-10.4); Carbon Dioxide 26 mmol/L (22-30); Chloride 105 mmol/L (96-108); Globulin 3.9 gm/dL (2.2-3.7); Glomerular Filtration Rate 51; Glucose 110 mg/dL (70-105); Lactate Dehydrogenase 216 U/L (135-225); Phosphorous 2.9 mg/dL (2.5-4.5); Potassium 4.2 mmol/L (3.3-5.1); Sodium 139 mmol/L (133-145); Triglycerides 75 mg/dL (<150); Uric Acid 7.2 mg/dL (2.5-8.0)
[2024-07-21] MEDS: METOPROLOL SUCCINATE 25 MG TAB.XL.24H PO SCH (09:09)
[2024-07-21] MEDS: SPIRONOLACTONE 25 MG TABLET PO SCH (09:12)
[2024-07-21] MEDS: LISINOPRIL 5 MG TABLET PO SCH (09:12)
[2024-07-21] MEDS: LINEZOLID 600 MG TABLET PO SCH (09:12)
[2024-07-21] MEDS ORDERED: GADOBENATE DIMEGLUMINE 15 ML/VIAL IV ONE (15:34)
[2024-07-21] MEDS: MELATONIN 3 MG TABLET PO SCH (21:09)
[2024-07-22 07:05] LABS: Basophils # (Auto) 0.04 K/mcL (0.00-0.30); Basophils % (Auto) 0.6 % (0.0-2.0); Eosinophils # (Auto) 0.36 K/mcL (0.00-0.70); Eosinophils % (Auto) 5.2 % (0.0-7.0); Hematocrit 35.7 % (40.1-51.0); Hemoglobin 10.4 g/dL (13.7-17.5); Lymphocytes # (Auto) 1.01 K/mcL (1.50-4.80); Lymphocytes % (Auto) 14.5 % (15.5-49.0); Mean Cell Volume 73.8 fL (80.0-100.0); Mean Corpuscular HGB Conc 29.1 g/dL (31.0-36.0); Mean Platelet Volume 9.2 fL (8.8-12.5); Monocytes # (Auto) 0.37 K/mcL (0.10-0.90); Monocytes % (Auto) 5.3 % (1.0-12.0); Neutrophils % (Auto) 74.3 % (38.0-78.0); Platelet Count 234 K/mcL (140-440); RBC 4.84 M/mcL (4.63-6.08); Red Cell Distribution Width 24.3 % (11.5-14.5)
[2024-07-22 07:44] LABS: ALT/SGPT 16 U/L (<40); AST/SGOT 26 U/L (<40); Albumin 3.1 gm/dL (3.2-5.2); Albumin/Globulin Ratio 0.7 (1.0-2.3); Alkaline Phosphatase 141 U/L (39-117); Bilirubin,Direct 0.4 mg/dL (<0.3); Bilirubin,Total 0.7 mg/dL (0.1-1.0); Blood Urea Nitrogen 47 mg/dL (8-23); Calcium 9.2 mg/dL (8.6-10.4); Carbon Dioxide 24 mmol/L (22-30); Chloride 104 mmol/L (96-108); Globulin 4.7 gm/dL (2.2-3.7); Glomerular Filtration Rate 43; Glucose 150 mg/dL (70-105); Lactate Dehydrogenase 240 U/L (135-225); Phosphorous 3.1 mg/dL (2.5-4.5); Potassium 4.5 mmol/L (3.3-5.1); Sodium 139 mmol/L (133-145); Triglycerides 111 mg/dL (<150); Uric Acid 7.4 mg/dL (2.5-8.0)
[2024-07-23 14:08] LABS: Amphetamine Screen Positive
== END 2024-07-22 14:27 | disposition home or self-care (01) | DRG 291 ==
LOC: ED 09:22 → ICU 15:55 → MEDSUR 07-20 16:02
PROVIDERS: ADMIT Internal Medicine; ATTEND Student in an Organized Health Care Education/Training Program